=== PATIENT | male | born 1990 | race Caucasian/White ===

== ENCOUNTER 2020-03-04 06:33 | Emergency (ER) | payer SELFPAY ==
[~2020-03-04] VITALS: Ht 172.7 cm; Wt 99.8 kg
[2020-03-04 06:35] VITALS: BP 130/90
== END 2020-03-04 07:02 | disposition home or self-care (01) ==
LOC: ED 06:33
DX: B34.9 Viral infection, unspecified (principal); Z20.828 Contact with and (suspected) exposure to other viral communicable diseases
CPT/HCPCS: U0003-CS

== ENCOUNTER 2020-04-29 10:09 | Emergency (ER) | payer SELFPAY ==
[~2020-04-29] VITALS: Ht 170.2 cm; Wt 99.8 kg
[2020-04-29 10:10] VITALS: Ht 170.2 cm; Wt 99.8 kg
[2020-04-29 11:52] LABS: BASOPHIL % 0.5 % (0-2); PLATELET COUNT 186 x10^3mcL (130-400); RED CELL DISTRIBUTION WIDTH 13.6 % (11.5-14.5)
[2020-04-29 12:06] LABS: ALBUMIN 3.8 g/dL (3.4-5.0); ALKALINE PHOSPHATASE 111 U/L (46-116); ALT/SGPT 141 U/L (16-63); AST/SGOT 172 U/L (15-37); BILIRUBIN TOTAL 0.49 mg/dL (0.20-1.00); CALCIUM 7.7 mg/dL (8.5-10.1); CARBON DIOXIDE 29.7 mmol/L (21-32); CHLORIDE SERUM 102 mmol/L (98-107); CREATININE SERUM 0.7 mg/dL (0.7-1.3); GFR1 > 60 mL/min; GLUCOSE SERUM 132 mg/dL (74-106); LIPASE 196 IU/L (73-393); SODIUM SERUM 143 mmol/L (136-145)
[2020-04-29 12:14] LABS: UA SPECIFIC GRAVITY <=1.005 (1.005-1.035); microscopic required? YES; urine erythrocyte NEGATIVE (NEGATIVE)
[2020-04-29 12:16] LABS: POTASSIUM SERUM 2.8 mmol/L (3.5-5.1)
[2020-04-29 16:44] VITALS: BP 113/67
== END 2020-04-29 16:44 | disposition home or self-care (01) ==
LOC: ED 10:09
PROVIDERS: Student in an Organized Health Care Education/Training Program
DX: R16.0 Hepatomegaly, not elsewhere classified (principal); R10.811 Right upper quadrant abdominal tenderness
CPT/HCPCS: J2270; J2405; J7030; Q0092; Q9967

== ENCOUNTER 2020-08-09 21:22 | Emergency (ER) | payer MEDICAID ==
[~2020-08-09] VITALS: Ht 170.2 cm; Wt 88.5 kg
[2020-08-09 21:32] VITALS: Ht 170.2 cm; Wt 88.5 kg
[2020-08-10 01:13] LABS: BASOPHIL % 0.6 % (0.2-1.5); RED CELL DISTRIBUTION WIDTH 13.9 % (12.1-16.2)
[2020-08-10 01:14] LABS: PLATELET COUNT 119 x10^3mcL (152-348)
[2020-08-10 01:21] LABS: ALBUMIN 4.1 g/dL (3.4-5.0); ALKALINE PHOSPHATASE 103 U/L (46-116); ALT/SGPT 117 U/L (16-63); AST/SGOT 112 U/L (15-37); BILIRUBIN TOTAL 2.19 mg/dL (0.20-1.00); CALCIUM 8.6 mg/dL (8.5-10.1); CARBON DIOXIDE 33.7 mmol/L (21-32); CHLORIDE SERUM 93 mmol/L (98-107); CREATININE SERUM 0.8 mg/dL (0.7-1.3); GFR1 > 60 mL/min; GLUCOSE SERUM 99 mg/dL (74-106); LIPASE 234 IU/L (73-393); SODIUM SERUM 138 mmol/L (136-145)
[2020-08-10 01:22] LABS: TOTAL PROTEIN, SERUM 8.3 g/dL (6.4-8.2)
[2020-08-10 01:26] LABS: POTASSIUM SERUM 2.5 mmol/L (3.5-5.1)
[2020-08-10 02:18] VITALS: BP 142/93
== END 2020-08-10 02:14 | disposition home or self-care (01) ==
LOC: ED 21:22
PROVIDERS: Emergency Medicine
DX: K29.20 Alcoholic gastritis without bleeding (principal); E87.6 Hypokalemia; E83.42 Hypomagnesemia
CPT/HCPCS: 83880; J1885; Q0162